=== PATIENT | male | born 1985 | race Caucasian/White ===

== ENCOUNTER 2018-12-01 15:32 | Emergency (ER) | payer OTHER ==
[2018-12-01] MEDS ORDERED: Bacitracin Zinc 1 Packet ONE (15:56)
[2018-12-01] MEDS ORDERED: AMOXicillin 250 MG CAP ONE (15:59)
[2018-12-01] MEDS ORDERED: Adacel (T-DAP) 0.5 ML SYRINGE ONE (15:59)
== END 2018-12-01 16:17 | disposition home or self-care (01) ==
LOC: BURERS 15:32
DX: S91.052A Open bite, left ankle, initial encounter (principal); W54.0XXA Bitten by dog, initial encounter
CPT/HCPCS: 90471; 90715